=== PATIENT | female | born 1975 | race Caucasian/White ===

== ENCOUNTER 2022-10-18 22:43 | Emergency (ER) | payer BC, SELFPAY ==
--- NOTE | 2022-10-18 22:45 | RT.EKG_ITS ---
APPROVED REPORT Exam: Resting ECG Reason for Exam: syncope Patient Location: E HR:63 bpm ECG Measurements Heart Rate 63 AXIS FL 148 P 42 QRSd 105 QRS 43 QT 427 T 19 QTc 439 Conclusion Sinus rhythm...normal P axis, V-rate 60- 99. Sinus. Normal axis. No STEMI. I have reviewed and interpreted ECG and agree with software generated interpretation.
[2022-10-18 22:49] VITALS: BP 123/71; PULSE 71; RESP 18; TEMP 36.8; O2SAT 97
--- NOTE | 2022-10-18 22:58 | W.ED.GENAD ---
Discharge Plan Disposition Patient Disposition: Home Condition: Good Discharge Details Clinical Impression: Episode of syncope, Alcohol use ED Provider: Sandra Farrell Home Meds and New Rx's Prescriptions: Continued escitalopram oxalate [Lexapro] 20 mg Tablet 20 mg PO DAILY hydroxychloroquine 100 mg Tablet 100 mg PO BID Ozempic 1 mg/dose (2 mg/1.5 mL) Pen Injector 1 mg SUBCUT QWEEK Discharge Instructions Instructions: Syncope (ED) Additional Instructions: Your blood tests, imaging and EKG today are reassuring and show no evidence of acute concerning or significant findings. Your case has been discussed with [facility] neurology and they recommend obtaining an outpatient EEG to rule out possible seizure and placement of a Holter monitor to rule out possible cardiac arrhythmia or abnormal heart rhythm. Call your primary care doctor in [place] on Thursday morning to schedule a follow-up appointment for reevaluation and for referral for the outpatient test mentioned above. Drink plenty of fluids and get plenty of rest. Return immediately to the emergency department if you develop any worsening or new concerning symptoms. Discharge Data Discharge Date/Time-TO BE ENTERED AT DEPARTURE: 10/19/22 02:23 Discharge Physician: Sandra Farrell Medical Decision Making 0996 -- 47-year-old female with a history of depression and possible lupus presents for syncopal episode prior to arrival. She denies any prodromal symptoms. witnessed the episode and endorses a staring off and unresponsivenexx prior to syncope. No report of injury. Patient appears comfortable and nontoxic. Vitals within normal limits. EKG notes a rate of 63, sinus, normal axis, T wave inversion in lead III but no ischemic findings. She has no focal deficits on exam. Differential diagnosis includes vasovagal syncope, seizure, dehydration, electrolyte abnormality, alcohol intoxication. Will obtain screening labs, CT head, chest x-ray and consult [facility] neurology for recommendations. 0130 --Labs and imaging reviewed and unremarkable for concerning findings. Alcohol 45. CT head and chest x-ray negative for acute findings. Case discussed with [facility] neurology who agreed of potential etiology of seizure versus syncope. Agree with plan for outpatient EEG and also recommend outpatient Holter monitor. No indication for seizure medication at this time. Patient reassessed and she has no acute complaints. Patient states she has a residence here where she is visiting but lives in [place]. She is traveling back there tomorrow and will call her primary care doctor on Thursday morning to schedule a follow-up appointment for reevaluation and for referral for outpatient EEG and Holter monitor. Patient advised to increase fluids and rest and to hold on driving until cleared by her PCP. Usual and customary return precautions given prior to discharge. Medical Records Medical records reviewed: Yes I reviewed the patient's medical records. Imaging Data Radiologic Study: Radiologist's impression: CT Head Without Contrast Exam date and time: 10/19/2022 12:53 AM Age: 47 years old Clinical indication: Other: Syncope vs seizure, R/O acute disease TECHNIQUE: Imaging protocol: Computed tomography of the head without contrast. COMPARISON: No relevant prior studies available. FINDINGS: Brain: Normal. No hemorrhage. Unremarkable white matter. No mass effect. Cerebral ventricles: No ventriculomegaly. Paranasal sinuses: Visualized sinuses are unremarkable. No fluid levels. Mastoid air cells: Visualized mastoid air cells are well aerated. Bones/joints: Unremarkable. No acute fracture. Soft tissues: Unremarkable. IMPRESSION: No acute intracranial abnormality. XR Chest Exam date and time: 10/19/2022 12:50 AM Age: 47 years old Clinical indication: Other: Syncope, R/O acute disease TECHNIQUE: Imaging protocol: Radiologic exam of the chest. Views: 2 views. COMPARISON: No relevant prior studies available. FINDINGS: Lungs: Unremarkable. No consolidation. Pleural spaces: Unremarkable. No pleural effusion. No pneumothorax. Heart/Mediastinum: Unremarkable. No cardiomegaly. Bones/joints: Unremarkable. IMPRESSION: No acute findings. Lab Data Lab results reviewed: Yes I reviewed the patient's lab results. Labs: Laboratory Tests Range/Units 10/18/22 10/18/22 10/19/22 23:21 23:21 00:01 WBC (4.4-10.8) 10^3/uL 5.39 RBC (3.93-5.22) 10^6/uL 3.57 L Hgb (11.2-15.7) g/dL 11.8 Hct (36.0-46.0) % 34.8 L MCV (80-95) fL 98 H MCH (27.0-33.0) pg 33.1 H MCHC (32.0-36.0) % 33.9 RDW (11.7-14.6) % 11.7 Plt Count (130-400) 10^3/uL 243 MPV (8.0-11.0) fL 9.6 Immature Gran % 0.2 Neutrophils % 68.8 Lymphocytes % 22.1 Monocytes % 6.7 Eosinophils % 1.1 Basophils % 1.1 Nucleated RBC % (0.0-0.3) % 0.0 Absolute Neutrophils (1.2-6.7) 10^3/uL 3.71 Absolute Lymphocytes (1.2-3.4) 10^3/uL 1.19 L Absolute Monocytes (0.1-0.8) 10^3/uL 0.36 Absolute Eosinophils (0.0-0.7) 10^3/uL 0.06 Absolute Basophils (0.0-0.2) 10^3/uL 0.06 Sodium (136-145) mmol/L 140 Potassium (3.5-5.1) mmol/L 3.5 Chloride (98-107) mmol/L 106 Carbon Dioxide (21.0-32.0) mmol/L 26.2 Anion Gap (3-11) mmol/L 7.8 BUN (7-18) mg/dL 16 Creatinine (0.55-1.02) mg/dL 1.0 Est GFR (CKD-EPI 2020) (mL/min/1.73m2) 69.06 Glucose (74-106) mg/dL 86 Calcium (8.5-10.1) mg/dL 8.9 Total Bilirubin (0.2-1.0) mg/dL 0.3 AST (15-37) U/L 44 H ALT (14-59) U/L 36 Alkaline Phosphatase (46-116) U/L 41 L Total Protein (6.4-8.2) g/dL 6.7 Albumin (3.4-5.0) g/dL 3.8 Urine Color (Yellow) Urine Clarity (Clear) Urine pH (5-8) Ur Specific [place] (1.005-1.025) Urine Protein (Negative) mg/dL Urine Ketones (Negative) mg/dL Urine Blood (Negative) Urine Nitrite (Negative) Urine Bilirubin (Negative) Urine Urobilinogen (Up to 0.2) mg/dL Ur Leukocyte Esterase (Negative) Urine RBC (0-2) HPF Urine WBC (0-5) HPF Ur Epithelial Cells (Negative) HPF Urine Crystals (Negative) HPF Urine Bacteria (Negative) HPF Urine Casts (Negative) LPF Urine Mucus (Negative) Ur Culture Indicated? Urine Glucose (Negative) mg/dL Urine Opiates Screen (Negative) Negative Urine Methadone Screen (Negative) Negative Ur Barbiturates Screen (Negative) Negative Ur Tricyclics Screen (Negative) Negative Ur Amphetamines Screen (Negative) Negative U Benzodiazepines Scrn (Negative) Negative Urine Cocaine Screen (Negative) Negative Ur THC Screen (Negative) Negative Ethyl Alcohol (<10) mg/dL 45.2 H Range/Units 10/19/22 00:01 WBC (4.4-10.8) 10^3/uL RBC (3.93-5.22) 10^6/uL Hgb (11.2-15.7) g/dL Hct (36.0-46.0) % MCV (80-95) fL MCH (27.0-33.0) pg MCHC (32.0-36.0) % RDW (11.7-14.6) % Plt Count (130-400) 10^3/uL MPV (8.0-11.0) fL Immature Gran % Neutrophils % Lymphocytes % Monocytes % Eosinophils % Basophils % Nucleated RBC % (0.0-0.3) % Absolute Neutrophils (1.2-6.7) 10^3/uL Absolute Lymphocytes (1.2-3.4) 10^3/uL Absolute Monocytes (0.1-0.8) 10^3/uL Absolute Eosinophils (0.0-0.7) 10^3/uL Absolute Basophils (0.0-0.2) 10^3/uL Sodium (136-145) mmol/L Potassium (3.5-5.1) mmol/L Chloride (98-107) mmol/L Carbon Dioxide (21.0-32.0) mmol/L Anion Gap (3-11) mmol/L BUN (7-18) mg/dL Creatinine (0.55-1.02) mg/dL Est GFR (CKD-EPI 2020) (mL/min/1.73m2) Glucose (74-106) mg/dL Calcium (8.5-10.1) mg/dL Total Bilirubin (0.2-1.0) mg/dL AST (15-37) U/L ALT (14-59) U/L Alkaline Phosphatase (46-116) U/L Total Protein (6.4-8.2) g/dL Albumin (3.4-5.0) g/dL Urine Color (Yellow) Yellow Urine Clarity (Clear) Clear Urine pH (5-8) 5.5 Ur Specific [place] (1.005-1.025) >= 1.030 H Urine Protein (Negative) mg/dL 30 H Urine Ketones (Negative) mg/dL Negative Urine Blood (Negative) Moderate H Urine Nitrite (Negative) Negative Urine Bilirubin (Negative) Negative Urine Urobilinogen (Up to 0.2) mg/dL 0.2 Ur Leukocyte Esterase (Negative) Negative Urine RBC (0-2) HPF 5-10 H Urine WBC (0-5) HPF 0-2 Ur Epithelial Cells (Negative) HPF Few Urine Crystals (Negative) HPF Negative Urine Bacteria (Negative) HPF Few Urine Casts (Negative) LPF 3-5 Hyaline Urine Mucus (Negative) Negative Ur Culture Indicated? No Urine Glucose (Negative) mg/dL Negative Urine Opiates Screen (Negative) Urine Methadone Screen (Negative) Ur Barbiturates Screen (Negative) Ur Tricyclics Screen (Negative) Ur Amphetamines Screen (Negative) U Benzodiazepines Scrn (Negative) Urine Cocaine Screen (Negative) Ur THC Screen (Negative) Ethyl Alcohol (<10) mg/dL ECG Data Attestation: I personally reviewed and interpreted this ECG (s) as follows: Interpretation: Rate of 63, sinus, normal axis, normal intervals, no STEMI. HPI General Mode of arrival: ambulatory. Date/Time Provider Initiated Documentation: 10/18/22 22:47. Limitations to Documentation: no limitations. Information obtained by: patient. HPI Narrative: Pt is a 47 yo F with a history of depression and a working diagnosis of lupus presents for a syncopal episode that occurred prior to arrival. Patient states she does not recall the episode but remembers feeling sweaty and fatigued after. states they were sitting at a restaurant and he noticed that patient appeared to be staring off. He states he tried to talk to her but she seemed unresponsive and was sitting with her eyes open. He states then she appeared to close her eyes and drift down in the seat and possibly passed out for about 30 seconds. He states she did not fall out of the chair and did not suffer any injury. Patient states afterwards she felt sweaty and significantly tired. She states after several minutes she was able to stand up and walk and exit the restaurant. She denies any previous history of seizure or syncopal episodes. She denies any recent illness including fever, sore throat, cough, vomiting or diarrhea. She states she has started Ozempic for weight loss 2 months ago. She states she is taking hydroxychloroquine for a possible diagnosis of lupus. She denies any new medications. She states she did drink 3 alcoholic drinks tonight with [employer]. She denies any drug use. She states she was active outside today but states she was able to eat and drink water. She denies any symptoms prior to this episode including dizziness, blurry vision, headache, chest pain, shortness of breath or palpitations. Related Data Home Medications Medication Instructions Recorded Confirmed escitalopram oxalate 20 mg tablet 20 mg PO DAILY 10/18/22 10/18/22 (Lexapro) hydroxychloroquine 100 mg tablet 100 mg PO BID 10/18/22 10/18/22 semaglutide 1 mg/dose (2 mg/1.5 1 mg subcut QWEEK 10/18/22 10/18/22 mL) subcutaneous pen injector (Ozempic) Allergies Allergy/AdvReac Type Severity Reaction Status Date / Time No Known Allergies Allergy Unverified 10/18/22 22:55 General Stated Complaint: [id number] CUCO: 3 Review of Systems All systems reviewed & are unremarkable except as noted in HPI and below Constitutional Constitutional: Reports as per HPI, Denies chills, Reports fatigue and Denies fever(s) Eyes Eyes: Denies blurry vision ENT Ears, Nose, Mouth, and Throat: Denies dizziness, Denies sore throat and Denies throat swelling Cardiovascular Cardiovascular: Denies chest pain, Reports syncope and Denies dyspnea Respiratory Respiratory: Denies cough and Denies dyspnea Gastrointestinal Gastrointestinal: Denies abdominal pain, Denies diarrhea and Denies vomiting Genitourinary Genitourinary: Denies hematuria and Denies dysuria Musculoskeletal Musculoskeletal: Denies back pain and Denies numbness Integumentary/Breasts Skin/Breast: Denies lesions and Denies rash Neurologic Neurologic: Denies dizziness, Reports syncope, Denies localized weakness and Denies numbness Endocrine Endocrine: Reports fatigue Allergic/Immunologic Allergic/Immunologic: Denies throat swelling PFSH All Active Problems Episode of syncope (Chronic) Alcohol use (Acute) Medical History (Updated 10/19/22 @ 02:04 by Sandra Farrell DO) Depression Lupus Surgical History (Updated 10/18/22 @ 23:53 by Sandra Farrell DO) Hx of cholecystectomy Social History Smoking/Tobacco Use Status: Never Smoking risk assessment performed?: Yes Alcohol Intake: current Alcohol Intake frequency: holidays/special occasions only Drug use: Never Substance use type: does not use Exam Const General: cooperative and no acute distress Orientation: alert, awake and oriented x3 HENMT Head: normal to inspection Ears: hearing grossly normal bilaterally, external ears normal and TM's normal bilaterally General nose exam: external nose normal Face and sinus: normal facial exam Eyes General: appearance normal, both eyes and all related structures Pupils: PERRL EOM: EOM intact bilaterally Neck Neck: normal visual inspection and No submandibular swelling Lymphatic: no lymphadenopathy noted Chest Chest: normal inspection of the chest and no tenderness Resp Effort & Inspection: normal respiratory effort and able to speak in complete sentences Auscultation: clear to auscultation bilaterally Cardio Rate: regular rate Rhythm: regular rhythm GI Inspection: normal to inspection Palpation: soft, not firm, not rigid and nontender Auscultation: hypoactive bowel sounds Back/Spine/Pelvis Thoracic/Lumbar Spine: thoracic and lumbar spine normal to inspection Pelvis: no pain with anterior-posterior compression Skin General skin exam: no rashes or lesions noted Neuro General: patient alert, patient awake, patient oriented x3 and no meningeal signs Cranial Nerves: CN's II-XI intact bilaterally Cognition: normal cognition Speech: speech normal Motor: muscle tone normal throughout and strength 5/5 throughout Sensory Exam: no sensory deficits noted Extrem General: normal to inspection, full ROM, capillary refill normal, no calf tenderness bilaterally and no edema Psych Appearance: grossly normal Mental Status: mental status grossly normal Speech and Movement: speech and movement normal Affect: normal affect Course Vital Signs Vital signs: Vital Signs Temperature 98.2 F 10/18/22 22:49 Pulse 71 10/18/22 22:49 Respiratory Rate 18 10/18/22 22:49 Blood Pressure 123/71 10/18/22 22:49 Pulse Oximetry 97 10/18/22 22:49 Temperature 98.2 F 10/18/22 22:49 Temperature Source Oral 10/18/22 22:49 Pulse 71 10/18/22 22:49 Respiratory Rate 18 10/18/22 22:49 Respiratory Effort Normal 10/18/22 22:54 Blood Pressure 123/71 10/18/22 22:49 Blood Pressure Position Sitting 10/18/22 22:49 Pulse Oximetry 97 10/18/22 22:49 Oxygen Delivery Method Room Air 10/18/22 22:49 Oxygen Flow Rate 0 10/18/22 22:49 Pain Level 0 10/18/22 22:49
[2022-10-18 23:37] LABS: Abs Immature Grans 0.01 10^3/uL (0.0-0.06); Absolute Basophil Count 0.06 10^3/uL (0.0-0.2); Absolute Eosinophil Count 0.06 10^3/uL (0.0-0.7); Absolute Lymphocyte Count 1.19 10^3/uL (1.2-3.4); Absolute Monocyte Count 0.36 10^3/uL (0.1-0.8); Absolute Neutrophil Count 3.71 10^3/uL (1.2-6.7); Basophils % 1.1; Eosinophils % 1.1; HCT 34.8 % (36.0-46.0); HGB 11.8 g/dL (11.2-15.7); Immature Grans % 0.2; Lymphocytes % 22.1; MCH 33.1 pg (27.0-33.0); MCHC 33.9 % (32.0-36.0); MCV 98 fL (80-95); MPV 9.6 fL (8.0-11.0); Monocytes % 6.7; Neutrophils % 68.8; Platelet Count 243 10^3/uL (130-400); RBC 3.57 10^6/uL (3.93-5.22); RDW 11.7 % (11.7-14.6); RDW-SD 42.1 fL; WBC 5.39 10^3/uL (4.4-10.8)
--- NOTE | 2022-10-18 23:45 | DI.RAD_ITS ---
Exam(s) XR CHEST 2V PA LATERAL EXAM: XR CHEST 2V PA LATERAL CLINICAL HISTORY: syncope, r/o acute disease. TECHNIQUE: 2D digital imaging was performed. COMPARISON: No exams were available for comparison FINDINGS: 2 views: Heart size is normal. The mediastinum is not widened. Lungs are clear. No infiltrates nor pleural effusions. IMPRESSION: No acute pulmonary findings. DATA REPOSITORY: RADIATION DOSE DELIVERED:
--- NOTE | 2022-10-18 23:45 | DI.CT_ITS ---
Exam(s) CT HEAD WO EXAM: CT HEAD WO CLINICAL HISTORY: syncope vs seizure, r/o acute disease. TECHNIQUE: Imaging Protocol: Axial computed tomography images with coronal and sagittal reformatted images were created and reviewed COMPARISON: No exams were available for comparison FINDINGS: There are no skull fractures. There is no fluid in the visualized paranasal sinuses. There is no evidence of intracranial hemorrhage, mass effect, or shift of midline structures. There are no extra-axial fluid collections. The ventricles are not enlarged or shifted and there is no blo od within the ventricular system nor within the basal cisterns. IMPRESSION: No acute intracranial findings on this noninfused CT scan of the brain. RADIATION DOSE DELIVERED: 749.38mGy.cm Total DLP DATA REPOSITORY: All CT scans at this facility are submitted to the National Radiology Data Registry (NRDR) Dose Index Registry (DIR) with the [employer] (A[employer]). RADIATION OPTIMIZATION: All CT scans at this facility use at least one of these dose optimization te chniques: automated exposure control; mA and/or kV adjustment per patient size (includes targeted exa ms where dose is matched to clinical indication); or iterative reconstruction.
[2022-10-18] MEDS: Normal Saline 1,000 ML 1000 ML IV (23:55)
[2022-10-19 00:01] LABS: ALT 36 U/L (14-59); AST 44 U/L (15-37); Albumin 3.8 g/dL (3.4-5.0); Alkaline Phosphatase 41 U/L (46-116); Anion Gap 7.8 mmol/L (3-11); BUN 16 mg/dL (7-18); Bilirubin, Total 0.3 mg/dL (0.2-1.0); CO2 26.2 mmol/L (21.0-32.0); Calcium 8.9 mg/dL (8.5-10.1); Chloride 106 mmol/L (98-107); ETHANOL BLOOD 45.2 mg/dL (<10); Estimated GFR 69.06 (mL/min/1.73m2); Glucose 86 mg/dL (74-106); Potassium 3.5 mmol/L (3.5-5.1); Sodium 140 mmol/L (136-145); Total Protein 6.7 g/dL (6.4-8.2)
[2022-10-19 00:15] LABS: Bilirubin Negative (Negative); Blood Moderate (Negative); Clarity Clear (Clear); Glucose Negative (Negative); Ketones Negative (Negative); Leukocyte Esterase Negative (Negative); Nitrite Negative (Negative); Specific Gravity >= 1.030 (1.005-1.025); Urobilinogen 0.2 mg/dL (Up to 0.2); pH 5.5 (5-8)
[2022-10-19 00:20] LABS: Bacteria Few HPF (Negative); C & S Indicated? No; Casts 3-5 Hyaline LPF (Negative); Crystals Negative HPF (Negative); Epithelial Cells Few HPF (Negative); Mucus Negative (Negative); WBC 0-2 HPF (0-5)
[2022-10-19 00:26] LABS: *AMPHETAMINES SCREEN URINE Negative (Negative); *BARBITURATES SCREEN URINE Negative (Negative); *BENZODIAZEPINES SCREEN URINE Negative (Negative); Cannabinoids THC Negative (Negative); Cocaine Screen,Urine Negative (Negative); METHADONE URINE SCREEN Negative (Negative); OPIATES URINE SCREEN Negative (Negative)
[2022-10-19 00:30] LABS: Tricyclic Antidepressants Negative (Negative)
--- NOTE | 2022-10-19 01:40 | DI.VRAD_ITS ---
PROCEDURE INFORMATION: Exam: XR Chest Exam date and time: 10/19/2022 12:50 AM Age: 47 years old Clinical indication: Other: Syncope, R/O acute disease TECHNIQUE: Imaging protocol: Radiologic exam of the chest. Views: 2 views. COMPARISON: No relevant prior studies available. FINDINGS: Lungs: Unremarkable. No consolidation. Pleural spaces: Unremarkable. No pleural effusion. No pneumothorax. Heart/Mediastinum: Unremarkable. No cardiomegaly. Bones/joints: Unremarkable. IMPRESSION: No acute findings. Dictated and Authenticated by: Avinash Narayanan MD. Ordering:JOSE MARIA Flores MD
--- NOTE | 2022-10-19 01:41 | DI.VRAD_ITS ---
PROCEDURE INFORMATION: Exam: CT Head Without Contrast Exam date and time: 10/19/2022 12:53 AM Age: 47 years old Clinical indication: Other: Syncope vs seizure, R/O acute disease TECHNIQUE: Imaging protocol: Computed tomography of the head without contrast. COMPARISON: No relevant prior studies available. FINDINGS: Brain: Normal. No hemorrhage. Unremarkable white matter. No mass effect. Cerebral ventricles: No ventriculomegaly. Paranasal sinuses: Visualized sinuses are unremarkable. No fluid levels. Mastoid air cells: Visualized mastoid air cells are well aerated. Bones/joints: Unremarkable. No acute fracture. Soft tissues: Unremarkable. IMPRESSION: No acute intracranial abnormality. Dictated and Authenticated by: Avinash Narayanan MD. Ordering:JOSE MARIA Flores MD
== END 2022-10-19 02:23 | disposition home or self-care (01) ==
LOC: ER 10-19 02:16
PROVIDERS: Emergency Provider Physician Assistant
DX: R55 Syncope and collapse (principal); F10.90 Alcohol use, unspecified, uncomplicated; Y90.2 Blood alcohol level of 40-59 mg/100 ml
CPT/HCPCS: 80053; 80307; 81025; 93005; 96360; 99284; 99285; 70450; 71046; 80320; 81003; 81015; 85025; 93010